=== PATIENT | female | born 1990 | race Caucasian/White ===

== ENCOUNTER 2021-05-14 07:16 | Inpatient (IN) | payer BC, MEDICAID ==
[~2021-05-14] VITALS: Ht 162.6 cm; Wt 86.8 kg
[2021-05-14] VITALS (32 sets, daily range): BP systolic 106–162; BP diastolic 49–97; PULSE 86–118; TEMP 97–99
--- NOTE | 2021-05-14 07:30 | NUR ---
Pt arrived on unit ambulatory and escorted by with complaints of spotting bright red blood this morning. Pt reports occasional contractions, denies any leaking of fluid and reports normal movement. EFM and toco monitors started. Vital signs WNL. Plan of care for labor assessment received.
[2021-05-14] MEDS ORDERED: PRENATAL (08:12)
[2021-05-14] MEDS ORDERED: EUTHYROX25 MCG PO (08:12)
[2021-05-14] MEDS ORDERED: OSCAL 500 TAB500 MG (08:13)
--- NOTE | 2021-05-14 08:27 | NUR ---
0827- This RN to the bedside. Abdomen palpated firm. FHR audible in the 90's bpm. EFM monitor adjusted. 0828- Assisted pt to the right lateral position. 0829- Assisted pt back to left lateral position. Additional staff called to the room for assistance. Dr. Mercado at the bedside. 0830- SVE per Dr. Mercado /-2. Abdomen still firm. FHR audible in the 90's bpm. 0832- Terbutaline given. See EMAR for details. 0833- O2 at 10L via face mask started. 0834- Abdomen relaxing. FHR with slow return to baseline 130bpm. 0839- IV started. Orders for labor admission received. Dr. Mercado reviewed plan of care reviewed with pt and at the bedside.
[2021-05-14 09:14] LABS: ALBUMIN 3.7 gm/dL (3.5-5.0); BASO % 0.1 % (0.0-2.0); BILIRUBIN,TOTAL 0.2 mg/dL (0.0-1.0); CALCIUM 8.9 mg/dL (8.4-10.2); CREATININE, serum 0.57 (0.52-1.25); EOS % 0.3 % (0-4.0); GRAN # 7.5 (1.4-6.5); GRAN % 75.4 % (42.2-75.2); HEMATOCRIT 37.2 % (37.0-47.0); HEMOGLOBIN 12.4 g/dl (12.5-16.0); LYMPH # 1.9 (1.2-3.4); LYMPH % 18.9 % (20.0-51.0); MEAN CELL VOLUME 88 fl (80.0-100.0); MEAN CORPUSCULAR HEMOGLOBIN 29 pg (27.0-31.0); MEAN CORPUSCULAR HGB CONC 33 g/dl (33.0-37.0); MEAN PLATELET VOLUME 10.6 fl (7.4-10.4); MONO # 0.5 (0.1-0.6); MONO % 4.8 % (1.7-9.3); PLATELET COUNT 195 K/mm3 (130-400); POTASSIUM 3.5 mmol/L (3.4-5.0); RED BLOOD COUNT 4.24 M/mm3 (4.10-5.30); REDCELL DISTRIBUTION WIDTH-CV 14.2 % (11.5-14.5); TOTAL PROTEIN 6.9 gm/dL (6.4-8.2)
--- NOTE | 2021-05-14 10:48 | NUR ---
1048-Patient off EFM to ambulate.
--- NOTE | 2021-05-14 12:12 | NUR ---
1212-Dr. Mercado to patient bedside. Discussed plan of care, 1217- SVE by /1, AROM clear fluid. Orders to start pitocin. 1228-Pitocin started per MD order. see EMAR> 1243-FHR with spontaneous decel down to 90bpm. Repositoined WL, FHR remains down. 1244-Pitocin off. SVE per GUERERRO Drummond unchanged, Repositioned BRITTANY, DR. Gifford notified who is in another room in a delivery. 1249-Dr. Mercado to room. SVE by and FSE placed, not tracing well and resuemed EFM. FHR remains in 90's and slowly returning to 125bpm. Orders to proceed to OR at 1250. patient off EFM and to OR at 1254
--- NOTE | 2021-05-14 13:50 | NUR ---
1350-Patient to PACU via bed. A&O x4, VSS, Recieved report from Emely Holguin CRNA. Patient assessemnt complete. Fundal massage albina sommers WNL. Abdominal dressing C/D/I. Binder to abdomen. Denies pain. Remained with patient per PACU protocol.
--- NOTE | 2021-05-14 18:00 | NUR ---
1800-Patient up to bedside. Steady gait. Carie D/C. Adali Care provided. Ambulates in halls with spouse and .
[2021-05-15 00:30] VITALS: BP 140/78; PULSE 96; TEMP 98.4
[2021-05-15 05:00] VITALS: BP 134/70; PULSE 98; TEMP 98.3
[2021-05-15 07:00] VITALS: BP 118/79; PULSE 92; TEMP 97.6
--- NOTE | 2021-05-15 08:57 | NUR ---
Initial visit; Patient thanked Grader Tender for stopping and offering God's blessings for her son who has been transferred for special care. Patient states that he is doing well at this time. Grader Tender will keep Shane Lim in her prayers along with mom.
--- NOTE | 2021-05-15 09:30 | NUR ---
REPORT RECIEVED BY Sadie AGUILAR RN AND CARE ASSUMED.
[2021-05-15] MEDS ORDERED: IBU800 M1 PO (09:33)
[2021-05-15] MEDS ORDERED: PERCOCET 325 MG1 TA2 PO (09:33)
[2021-05-15 12:43] VITALS: BP 128/84; PULSE 93; TEMP 98
--- NOTE | 2021-05-15 14:15 | NUR ---
DISCHARGE TEACHING COMPLETED. PATIENT EDUCATED ON FOLLOW UP APPOINTMENT AND PRESCRIPTIONS. QUESTIONS INVITED AND ANSWERED.
== END 2021-05-15 14:27 | disposition home or self-care (01) | DRG 788 ==
LOC: LDRO 07:16 → LDR 08:47 → OB 08:47
PROVIDERS: Student in an Organized Health Care Education/Training Program; ADMIT Obstetrics & Gynecology
PROC: 10D00Z1 Extraction of Products of Conception, Low, Open Approach (ICD-10-PCS; principal; 2021-05-14)
DX: O99.284 Endocrine, nutritional and metabolic diseases complicating childbirth (principal); O99.344 Other mental disorders complicating childbirth; F41.8 Other specified anxiety disorders; E03.9 Hypothyroidism, unspecified; O76 Abnormality in fetal heart rate and rhythm complicating labor and delivery; E66.9 Obesity, unspecified; Z3A.37 37 weeks gestation of pregnancy; Z37.0 Single live birth
CPT/HCPCS: J0171; J0690; J1885; J2175; J2370; J2405; J2590; J3105; J7120

== ENCOUNTER 2021-07-23 19:48 | Emergency (ER) | payer BC, MEDICAID ==
[~2021-07-23 19:48] MED LIST: EUTHYROX25 MCG PO; IBU800 M1 PO; OSCAL 500 TAB500 MG; PERCOCET 325 MG1 TA2 PO; PRENATAL
[2021-07-23 21:07] VITALS: TEMP 98
[2021-07-23 21:20] VITALS: BP 138/99; PULSE 76
== END 2021-07-23 21:20 | disposition home or self-care (01) ==
LOC: COL.ER 19:48
DX: O9A.219 Injury, poisoning and certain other consequences of external causes complicating pregnancy, unspecified trimester (principal); S16.1XXA Strain of muscle, fascia and tendon at neck level, initial encounter; V49.50XA Passenger injured in collision with unspecified motor vehicles in traffic accident, initial encounter

== ENCOUNTER 2024-02-15 17:14 | Outpatient (CLI) | payer BC ==
[~2024-02-15] VITALS: Ht 162.6 cm; Wt 90.9 kg
--- NOTE | 2024-02-15 17:30 | NUR ---
PT AMBULATORY TO UNIT BY SELF. REPORTS CTX Q7-10 MINUTES AND LOF. "HAS BEEN LEAKING LIKE THIS THE ENTIRE ." RN DISCUSSED DISCHARGE VS LOF. PT STATES UNDERSTANDING. REPORTS INTERCOURSE YESTERDAY. EXPLAINED THAT SEMEN COULD CREATE A FALSE POSITIVE ON AMNITRACE, AND THAT COULD BE THE LOF, PT UNDERSTANDS. SVE CL/TH/HIGH, PT VERY UNCOMFORTABLE WITH CHECK. AMNITRACE NEGATIVE FOR AMNIOTIC FLUID. EFM CAT 1. VS STABLE. DISCUSSED POC. NOTIFIED.
[2024-02-15] MEDS ORDERED: PRILOSEC 20MG20 MG PO (17:35)
[2024-02-15] MEDS ORDERED: BENADRYL25 M2 PO (17:35)
[2024-02-15] MEDS ORDERED: STOOL SOFTENER100 M2 PO (17:35)
[2024-02-15] MEDS ORDERED: LR 1,000 ML IV PRN (18:00)
[2024-02-15 18:15] VITALS: PULSE 86
[2024-02-15] MEDS ORDERED: Terbutaline 1 MG/ML 1 ML AMP SQ ONE (18:45)
[2024-02-15 19:00] VITALS: BP 147/79; PULSE 71
[2024-02-15 19:25] VITALS: BP 145/82; PULSE 113
--- NOTE | 2024-02-15 19:35 | NUR ---
PATIENT EDUCATED ON STAYING WELL HYDRATED, KEEPING SCHEDULED APPOINTMENTS, WHEN TO RETURN TO HOSPITAL. PATIENT VERBALIZES UNDERSTANDING. QUESTIONS INVITED AND ANSWERED. PATIENT AMBULATORY OFF UNIT.
== END 2024-02-15 19:35 ==
LOC: LDRO 17:14
DX: Z34.93 Encounter for supervision of normal pregnancy, unspecified, third trimester (principal); Z3A.34 34 weeks gestation of pregnancy
CPT/HCPCS: J3105

== ENCOUNTER 2024-02-29 18:06 | Outpatient (CLI) | payer BC ==
[2024-02-29] VITALS (14 sets, daily range): BP systolic 132–170; BP diastolic 73–91; PULSE 81–93; TEMP 98.1–98.3
[~2024-02-29] VITALS: Ht 165.1 cm; Wt 90.9 kg
[~2024-02-29 18:06] MED LIST changes: +BENADRYL25 M2 PO; +PRILOSEC 20MG20 MG PO; +STOOL SOFTENER100 M2 PO
[2024-02-29] MEDS ORDERED: LR 1,000 ML IV PRN (19:15)
--- NOTE | 2024-02-29 20:00 | NUR ---
Pt positioned to her back with a slight left tilt for repeat SVE. During this time, decel to the 90's heard by this RN who is at the bedside. US readjusted to verify heart rate. Decel lasts approx 2 minutes with RN at the bedside this entire time. SVE obtained after recovery and pt off the monitors to the bathroom. Dr Means notified of decel and pt to be monitored for another hour.
[2024-02-29] MEDS ORDERED: Acetaminophen 500 MG TAB PO ONE (20:15)
[2024-02-29 21:20] LABS: COLLECTION METHOD CLEAN CATCH
[2024-02-29 21:25] LABS: HEMOGLOBIN 10.7 g/dl (12.5-16.0); MEAN CELL VOLUME 83 fl (80.0-100.0); MEAN CORPUSCULAR HEMOGLOBIN 28 pg (27-31); MEAN CORPUSCULAR HGB CONC 34 g/dl (33.0-37.0); MEAN PLATELET VOLUME 11.2 fl (7.4-10.4); PLATELET COUNT 205 K/mm3 (130-400); RED BLOOD COUNT 3.83 M/mm3 (4.10-5.30); REDCELL DISTRIBUTION WIDTH-CV 13.7 % (11.5-14.5)
[2024-02-29 21:32] LABS: PH 6.5 (5.0-8.5); URINE APPEARANCE CLEAR (CLEAR/HAZY); URINE BLOOD NEGATIVE (NEGATIVE); URINE COLOR YELLOW (YELLOW); URINE GLUCOSE NEGATIVE (NEGATIVE); URINE KETONE NEGATIVE (NEGATIVE); URINE NITRATE NEGATIVE (NEGATIVE); URINE PROTEIN(semi-quant) NEGATIVE (NEGATIVE); URINE UROBILINOGEN 0.2 E.U/dL (0.2-1.0)
[2024-02-29 21:36] LABS: HEMATOCRIT 31.9 % (37.0-47.0)
[2024-02-29 21:50] LABS: ALBUMIN 2.7 g/dL (3.5-5.0); BILIRUBIN,TOTAL 0.2 mg/dL (0.2-1.2); CALCIUM 8.5 mg/dL (8.4-10.2); CREATININE, serum 0.7 mg/dL (0.57-1.11); POTASSIUM 3.8 mEq/L (3.5-4.5); TOTAL PROTEIN 6.1 g/dl (6.2-8.1)
--- NOTE | 2024-02-29 22:00 | NUR ---
Pt sitting upright in bed for comfort at this time. Pt reports she hasn't felt much relief from the ctx in any of the positions she has tried. Pt does ask this RN if she could ambulate around the unit while waiting on test results to come back. RN informs pt this is just fine for her to do.
[2024-02-29 22:03] LABS: LYMPHOCYTE 14 % (20.0-51.0); NEUTROPHILS 84 % (42.0-75.2)
== END 2024-02-29 22:40 | disposition home or self-care (01) ==
LOC: LDRO 18:06
PROVIDERS: Obstetrics & Gynecology
DX: O26.893 Other specified pregnancy related conditions, third trimester (principal); E75.5 Other lipid storage disorders; Z3A.36 36 weeks gestation of pregnancy

== ENCOUNTER 2024-03-08 01:56 | Inpatient (IN) | payer BC ==
[~2024-03-08] VITALS: Ht 165.1 cm; Wt 210.0 kg
[2024-03-08] VITALS (21 sets, daily range): BP systolic 127–177; BP diastolic 72–98; PULSE 53–100; TEMP 97.5–98.4
[2024-03-08] MEDS ORDERED: LR 1,000 ML IV SCH (02:30)
--- NOTE | 2024-03-08 02:35 | NUR ---
PT AMBULATORY TO ROOM, INSTRUCTED TO CHANGE INTO GOWN. RN AT BEDSIDE, PT REPORTS TO RN THAT AROUND 0100 SHE GOT UP TO GO TO THE BATHROOM AND SHE FELT A POP AND A GUSH OF FLUID. PT REPORTS CLEAR FLUID, DENIES VAGINAL BLEEDING, AND REPORTS GOOD MOVEMENT. PT PLACED ON MONITORS, DISCUSSED POC WITH PT AND SPOUSE. AMNIOTRACE IS POSITIVE, SVE FT/50/-3, POOLING OF CLEAR FLUID NOTED ON EXAM GLOVE.
[2024-03-08] MEDS ORDERED: Ondansetron 4 MG/2 ML VIAL ONE (02:47)
[2024-03-08] MEDS ORDERED: Ketorolac 30 MG/ML VIAL ONE (02:47)
[2024-03-08] MEDS ORDERED: NS 10 ML IV ONE (02:47)
[2024-03-08] MEDS ORDERED: dexAMETHasone 10 MG/ML VIAL ONE (02:47)
[2024-03-08] MEDS ORDERED: Oxytocin 10 UNITS/ML VIAL ONE (02:47)
[2024-03-08 02:49] LABS: BASO % 0.1 % (0.0-2.0); EOS # 0.1 K/mm3 (0.0-0.7); EOS % 0.7 % (0.0-4.0); GRAN # 5.4 K/mm3 (1.4-6.5); GRAN % 71.4 % (42.2-75.2); HEMOGLOBIN 10.5 g/dl (12.5-16.0); LYMPH # 1.6 K/mm3 (1.2-3.4); LYMPH % 21.8 % (20.0-51.0); MEAN CELL VOLUME 86 fl (80.0-100.0); MEAN CORPUSCULAR HEMOGLOBIN 28 pg (27-31); MEAN CORPUSCULAR HGB CONC 32 g/dl (33.0-37.0); MEAN PLATELET VOLUME 11.5 fl (7.4-10.4); MONO # 0.4 K/mm3 (0.1-0.6); MONO % 5.7 % (1.7-9.3); PLATELET COUNT 184 K/mm3 (130-400); RED BLOOD COUNT 3.77 M/mm3 (4.10-5.30); REDCELL DISTRIBUTION WIDTH-CV 13.8 % (11.5-14.5)
[2024-03-08 02:53] LABS: HEMATOCRIT 32.4 % (37.0-47.0)
--- NOTE | 2024-03-08 03:35 | NUR ---
LIVE MMALE DELIVERED VIA REPEAT , PLACED ON MOTHER'S LOWER ABDOMEN AND LEGS, DRIED, STIMULATED AND BULB SUCTIONED BY DR CHRISTINE. CORD CLAMPED AND CUT BY DR RODRIGUEZ. TAKEN TO RADIANT WARMER AND CARE ASSUMED BY NURSERY RN. DR CHRISTINE AND DR RODRIGUEZ CONTINUE WITH THE SURGERY, SPONTANEOUS EXPULSION OF THE PLACENTA. INCISION CLOSED BY DR CHRISTINE AND PT TAKEN TO THE PACU.
[2024-03-08] MEDS ORDERED: fentaNYL 50 MCG/ML 2 ML VIAL ONE (03:36)
[2024-03-08] MEDS ORDERED: Ondansetron 4 MG/2 ML VIAL IV PRN (04:30)
[2024-03-08] MEDS ORDERED: LR 1,000 ML IV PRN (04:30)
[2024-03-08] MEDS ORDERED: Naloxone 0.4 MG/ML VIAL IV PRN (04:30)
[2024-03-08] MEDS ORDERED: Magnes Hydrox (MOM) 80 MG/ML 30 ML CUP PO PRN (04:30)
[2024-03-08] MEDS ORDERED: Loratadine 10 MG TAB PO PRN (04:30)
[2024-03-08] MEDS ORDERED: Morphine 4 MG/ML VIAL IV PRN (04:30)
[2024-03-08] MEDS ORDERED: oxyCODONE 5 MG TAB PO PRN (04:30)
[2024-03-08] MEDS ORDERED: Acetaminophen 500 MG TAB PO SCH (04:30)
[2024-03-08] MEDS ORDERED: Measles/Mumps/Rubella Virus Vaccine Live w Diluent 0.5 ML VIAL SQ SCH (04:30)
[2024-03-08] MEDS ORDERED: Sennosides/Docusate 8.6-50 MG TAB PO SCH (08:00)
[2024-03-08] MEDS ORDERED: Ibuprofen 800 MG TAB PO SCH (10:30)
--- NOTE | 2024-03-08 12:55 | NUR ---
THIS RN TO BEDISDE TO ASSIST PATIENT TO AMBULATE TO RESTROOM. PATIENT DANGLES AT BEDSIDE WITHOUT DIFFICULTY, PATIENT IS THEN ASSISTED TO STANDING AT BEDSIDE WITHOUT COMPLAINT OF DIZZINESS OR BEING LIGHTHEADED. PATIENT IS ASSISTED TO RESTROOM, NGO DISCONTINUED, AND PATIENT IS UNABLE TO VOID. PERICARE PERFORMED AND NEW GOWN ON. THIS RN ASSISTS PATIENT TO ROCKING CHAIR TO BREASTFEED INFNAT.
[2024-03-08] MEDS ORDERED: traZODone 50 MG TAB PO PRN (21:00)
[2024-03-09 00:18] VITALS: BP 139/82; PULSE 79; TEMP 98.3
[2024-03-09 07:35] VITALS: BP 134/84; PULSE 82; TEMP 98.1
[2024-03-09] MEDS ORDERED: MOTRIN 800800 MG/TAB PO (08:20)
== END 2024-03-09 14:35 | disposition home or self-care (01) | DRG 788 ==
LOC: LDR 01:56 → OB 06:55
PROVIDERS: Obstetrics & Gynecology; ADMIT Obstetrics & Gynecology
PROC: 10D00Z1 Extraction of Products of Conception, Low, Open Approach (ICD-10-PCS; principal; 2024-03-08)
DX: O34.211 Maternal care for low transverse scar from previous cesarean delivery (principal); Z3A.38 38 weeks gestation of pregnancy; Z37.0 Single live birth; O99.344 Other mental disorders complicating childbirth; F41.9 Anxiety disorder, unspecified; F32.A Depression, unspecified; O99.284 Endocrine, nutritional and metabolic diseases complicating childbirth; E03.9 Hypothyroidism, unspecified; F90.9 Attention-deficit hyperactivity disorder, unspecified type
CPT/HCPCS: J0665; J0690; J1100; J1885; J2405; J2590; J3010; J7120